=== PATIENT | female | born 1960 | race Caucasian/White ===

== ENCOUNTER → 2016-08-07 | Outpatient (CLI) | payer BC ==
--- NOTE | 2016-08-07 16:23 | REPMRS ---
Patient History The patient states she had a clinical breast exam in 07/2016. Patient is postmenopausal, has history of other cancer at age 50, and had first child at age 35. No known family history of cancer. Digital Woman Screen Mammo: August 07, 2016 - Exam #: [id number] Bilateral CC and MLO view(s) were taken. Technologist: Mary Anne Taylor, Technologist Prior study comparison: July 03, 2015, digital woman screen mammo performed at [facility] to [facility]. July 03, 2014, digital woman screen mammo performed at [facility]. March 09, 2013, digital woman screen mammo performed at [facility]. FINDINGS: There are scattered fibroglandular densities. There has been no change in the appearance of the mammogram from the prior studies. There is a mild amount of scattered fibroglandular density which is fairly symmetric. There is no interval development of dominant mass, architectural distortion, or clustered microcalcification suggestive of malignancy. ASSESSMENT: BI-RADS/ACR category 1 mammogram. Negative. Recommendation Routine screening mammogram in 1 year (for women over age 40). This mammogram was interpreted with the aid of an FDA-approved computer-aided dectection system. Electronically Signed By: Darnell Goodson MD 08/07/16 [id number]
== END ==
LOC: M WHC 15:19
PROVIDERS: ATTEND Nurse Practitioner Family
DX: Z12.31 Encounter for screening mammogram for malignant neoplasm of breast (principal); Z78.0 Asymptomatic menopausal state

== ENCOUNTER → 2016-08-08 | Outpatient (REF) | payer BC | LOC: M SFHCWAGY 08:13 | PROVIDERS: ATTEND Nurse Practitioner Family | DX: Z12.4 Encounter for screening for malignant neoplasm of cervix (principal); N88.8 Other specified noninflammatory disorders of cervix uteri ==

== ENCOUNTER → 2017-06-25 | Outpatient (REF) | payer BC ==
[2017-06-25 10:11] LABS: MEAN CORPUSCULAR HEMOGLOBIN 28.1 pg (27.0-33.0); MEAN CORPUSCULAR HGB CONC 31.8 g/dl (32.0-36.5); MEAN CORPUSCULAR VOLUME 88.5 fl (80.0-96.0); PLATELET COUNT, AUTOMATED 221 10^3/uL (150-450); RED CELL DISTRIBUTION WIDTH 16.2 % (11.5-14.5); WHITE BLOOD COUNT 2.8 10^3/uL (4.0-10.0)
[2017-06-25 10:20] LABS: ALBUMIN 4.2 GM/DL (3.2-5.2); ALBUMIN/GLOBULIN RATIO 1.24 (1.00-1.93); ALKALINE PHOSPHATASE 66 U/L (45-117); ALT/SGPT 22 U/L (12-78); ANION GAP 6 MEQ/L (8-16); AST/SGOT 21 U/L (7-37); BILIRUBIN,TOTAL 0.4 MG/DL (0.2-1.0); BLOOD UREA NITROGEN 17 MG/DL (7-18); CARBON DIOXIDE LEVEL 29 MEQ/L (21-32); CHLORIDE LEVEL 104 MEQ/L (98-107); CHOLESTEROL LEVEL 284 MG/DL (<200); CREATININE FOR GFR 0.87 MG/DL (0.55-1.02); GLOMERULAR FILTRATION RATE > 60.0 (>51); GLUCOSE, FASTING 90 MG/DL (70-105); POTASSIUM SERUM 4.4 MEQ/L (3.5-5.1); SODIUM LEVEL 139 MEQ/L (136-145); TOTAL PROTEIN 7.6 GM/DL (6.4-8.2); TRIGLYCERIDES LEVEL 54 MG/DL (<150)
== END ==
LOC: M LAB REF 09:59
PROVIDERS: ATTEND Internal Medicine
DX: Z00.00 Encounter for general adult medical examination without abnormal findings (principal); C02.9 Malignant neoplasm of tongue, unspecified; E78.00 Pure hypercholesterolemia, unspecified

== ENCOUNTER → 2017-11-24 | Outpatient (CLI) | payer BC | LOC: M WHC 15:19 | DX: Z12.31 Encounter for screening mammogram for malignant neoplasm of breast (principal); Z78.0 Asymptomatic menopausal state | CPT/HCPCS: 77067 ==

== ENCOUNTER → 2017-11-24 | Outpatient (REF) | payer BC | LOC: M SFHCWAGY 15:41 | DX: Z12.4 Encounter for screening for malignant neoplasm of cervix (principal) | CPT/HCPCS: G0123 ==

== ENCOUNTER → 2018-07-07 | Outpatient (REF) | payer BC ==
[2018-07-07 09:43] LABS: HEMATOCRIT 39.5 % (36.0-47.0); HEMOGLOBIN 12.4 g/dl (12.0-15.5); MEAN CORPUSCULAR HEMOGLOBIN 27.5 pg (27.0-33.0); MEAN CORPUSCULAR HGB CONC 31.4 g/dl (32.0-36.5); MEAN CORPUSCULAR VOLUME 87.6 fl (80.0-96.0); PLATELET COUNT, AUTOMATED 201 10^3/uL (150-450); RED BLOOD COUNT 4.51 10^6/uL (4.00-5.40); WHITE BLOOD COUNT 3.5 10^3/uL (4.0-10.0)
[2018-07-07 09:59] LABS: ALBUMIN 3.8 GM/DL (3.2-5.2); ALT/SGPT 22 U/L (12-78); BILIRUBIN,TOTAL 0.4 MG/DL (0.2-1.0); BLOOD UREA NITROGEN 13 MG/DL (7-18); CALCIUM LEVEL 9.1 MG/DL (8.5-10.1); CARBON DIOXIDE LEVEL 29 MEQ/L (21-32); CHLORIDE LEVEL 106 MEQ/L (98-107); CHOLESTEROL LEVEL 301 MG/DL (<200); CREATININE FOR GFR 0.88 MG/DL (0.55-1.30); GLOMERULAR FILTRATION RATE > 60.0 (>51); GLUCOSE, FASTING 92 MG/DL (70-100); HDL CHOLESTEROL 88 MG/DL (>40); LDL CHOLESTEROL 198 MG/DL (<100); NON-HDL-C 213 MG/DL; POTASSIUM SERUM 4.5 MEQ/L (3.5-5.1); SODIUM LEVEL 142 MEQ/L (136-145); TOTAL PROTEIN 7.1 GM/DL (6.4-8.2); TRIGLYCERIDES LEVEL 77 MG/DL (<150)
== END ==
LOC: M SFHCPLAZ 09:25
PROVIDERS: ATTEND Internal Medicine
DX: Z00.00 Encounter for general adult medical examination without abnormal findings (principal); E78.00 Pure hypercholesterolemia, unspecified

== ENCOUNTER 2018-08-29 13:41 | Emergency (ER) | payer BC ==
[~2018-08-29] VITALS: Ht 172.7 cm; Wt 63.6 kg
[2018-08-29] MEDS ORDERED: ATOR1TAB19 (13:47)
[2018-08-29 15:01] VITALS: BP 124/78
--- NOTE | 2018-08-29 15:15 | REP ---
LEFT KNEE, COMPLETE: 08/29/2018. CLINICAL HISTORY: Trauma. FINDINGS: Four views are provided. The patient was unable to position for the sunrise view. Medial and lateral compartments show no narrowing. I see no depressed fracture of the tibial plateau. The proximal fibula unremarkable. Femoral condyles unremarkable. There is a suprapatellar effusion, best seen on the lateral view. No osteochondral defect evident. IMPRESSION: 1. Suprapatellar effusion on the lateral view, no other significant or acute finding. No visible or displaced fracture, loose body, osteochondral defect, or other significant finding. Electronically Signed by Twin Bartlett MD 08/29/2018 07:20 P
== END 2018-08-29 15:08 | disposition home or self-care (01) ==
LOC: M ED 13:41
DX: M23.92 Unspecified internal derangement of left knee (principal); M25.462 Effusion, left knee; W00.9XXA Unspecified fall due to ice and snow, initial encounter; Y92.9 Unspecified place or not applicable; Y93.23 Activity, snow (alpine) (downhill) skiing, snowboarding, sledding, tobogganing and snow tubing; Y99.9 Unspecified external cause status; E78.00 Pure hypercholesterolemia, unspecified; Z79.899 Other long term (current) drug therapy

== ENCOUNTER → 2018-08-30 | Outpatient (CLI) | payer BC ==
[~2018-08-30] MED LIST: ATOR1TAB19
--- NOTE | 2018-08-31 08:12 | REP ---
MRI LEFT KNEE WITHOUT CONTRAST: 08/30/2018. Clinical history: Left knee sprain. Joint effusion on the x-ray yesterday. Technique: Axial T2 with coronal and sagittal PD and fat suppressed T2 sequences. Findings: Extensive marrow edema in the tibial plateau between the tibial spines and into the lateral tibial epiphysis and metaphysis. There is a nondisplaced/nondepressed fracture line evident on the PD images with dark signal. This fracture is radiographically occult. There is a joint effusion in all compartments and into the suprapatellar bursa and recesses. Fracture line extends into the medial tibial spine on the coronal images and posteriorly to the posterior margin of the tibial plateau. Medial plateau and both femoral condyles are unremarkable. There is no patellar fracture. Proximal fibula unremarkable. The proximal tibiofibular articulation is normal. PCL is intact. The ACL shows some contiguous fibers but significant increased signal along its course representing significant strain. There is some fluid posterior to the posterior horn of the medial meniscus and deep to the capsule representing meniscocapsular injury. I do not see a tear extending to an articular surface. There is no loose body or bucket-handle tear fragment in the medial compartment. There is mild chondromalacia in that compartment. The MCL is intact. There is some edema, attenuation of the medial patellar retinaculum consistent with strain. Trace fluid in the popliteal fossa adjacent to the medial head of the gastrocnemius. The lateral meniscus shows no definite tear or loose body in the lateral compartment. There is some chondromalacia. Lateral collateral ligamentous complex shows some increased signal along its fibers representing some strain. The lateral patellar retinaculum grossly intact. Popliteus tendon is preserved. Extensor mechanism shows patellar and quadriceps tendons intact. Suprapatellar effusion with suspected plica. Impression: 1. There is a nondisplaced, nondepressed central and lateral tibial plateau fracture with dark signal PD and extensive marrow edema adjacent to it on the T2 images. This is radiographically occult. There is an associated joint effusion through all the compartments. 2. Meniscocapsular injury with fluid posterior to posterior horn of the medial meniscus and deep to its capsule. 3. Chondromalacia all three compartments without loose body, osteochondral defect or significant joint space narrowing. 4. Strain of the collateral ligamentous complexes and the medial patellar retinaculum. No definite tear. Small amount of fluid in the popliteal fossa. 5. Strain of the ACL. There are some contiguous fibers noted. PCL intact. Electronically Signed by Twin Bartlett MD 08/31/2018 05:42 P
== END ==
LOC: M RAD 16:15
PROVIDERS: ATTEND Orthopaedic Surgery Sports Medicine
DX: S82.55XA Nondisplaced fracture of medial malleolus of left tibia, initial encounter for closed fracture (principal); M89.0 Algoneurodystrophy; M25.462 Effusion, left knee; M22.42 Chondromalacia patellae, left knee; S83.92XA Sprain of unspecified site of left knee, initial encounter; X58.XXXA Exposure to other specified factors, initial encounter; Y92.9 Unspecified place or not applicable

== ENCOUNTER → 2018-10-05 | Outpatient (REF) | payer BC ==
[2018-10-05 09:26] LABS: ALBUMIN 3.9 GM/DL (3.2-5.2); BILIRUBIN,DIRECT 0.1 MG/DL (0.0-0.2); BILIRUBIN,TOTAL 0.5 MG/DL (0.2-1.0); CHOLESTEROL RISK RATIO 2.425 (<5); TOTAL PROTEIN 7.4 GM/DL (6.4-8.2)
== END ==
LOC: M LAB REF 08:54
PROVIDERS: ATTEND Internal Medicine
DX: E78.00 Pure hypercholesterolemia, unspecified (principal)

== ENCOUNTER → 2018-11-25 | Outpatient (REF) | payer BC ==
[2018-11-27 15:51] LABS: HPV HYBRID CAPTURE II Negative (Negative)
== END ==
LOC: M SFHCWAGY 15:40
PROVIDERS: ATTEND Nurse Practitioner Family
DX: Z12.4 Encounter for screening for malignant neoplasm of cervix (principal); N88.8 Other specified noninflammatory disorders of cervix uteri
CPT/HCPCS: 87624; G0123

== ENCOUNTER → 2018-11-25 | Outpatient (CLI) | payer BC ==
--- NOTE | 2018-11-25 17:40 | REPMRS ---
Patient History The patient states she had a clinical breast exam in 11/2018. No known family history of cancer. Digital Woman Screen Mammo: November 25, 2018 - Exam #: [id number] Bilateral CC and MLO view(s) were taken. Technologist: Angelia Boyce Technologist Prior study comparison: November 24, 2017, digital woman screen mammo performed at [facility]. August 07, 2016, digital woman screen mammo performed at [facility]. July 03, 2015, digital woman screen mammo performed at [facility]. FINDINGS: There are scattered fibroglandular densities. There has been no change in the appearance of the mammogram from the prior studies. There is a mild amount of scattered fibroglandular density which is fairly symmetric. There is no interval development of dominant mass, architectural distortion, or clustered microcalcification suggestive of malignancy. 3-D tomosynthesis shows no additional findings. Assessment: BI-RADS/ACR category 1 mammogram. Negative Mammogram. Recommendation Routine screening mammogram of both breasts in 1 year (for women over age 40). This patient's Lifetime Breast Cancer RIsk is estimated at 11.4 %. This mammogram was interpreted with the aid of an FDA-approved computer-aided dectection system. Electronically Signed By: Darnell Goodson MD 11/25/18 [id number]
== END ==
LOC: M WHC 15:00
PROVIDERS: ATTEND Nurse Practitioner Family
DX: Z12.31 Encounter for screening mammogram for malignant neoplasm of breast (principal)

== ENCOUNTER → 2019-07-05 | Outpatient (REF) | payer BC ==
[2019-07-05 08:00] LABS: HEMATOCRIT 43.1 % (36.0-47.0); HEMOGLOBIN 13.4 g/dl (12.0-15.5); MEAN CORPUSCULAR HEMOGLOBIN 28.5 pg (27.0-33.0); MEAN CORPUSCULAR HGB CONC 31.1 g/dl (32.0-36.5); MEAN CORPUSCULAR VOLUME 91.5 fl (80.0-96.0); PLATELET COUNT, AUTOMATED 182 10^3/uL (150-450); RED BLOOD COUNT 4.71 10^6/uL (4.00-5.40); WHITE BLOOD COUNT 3.6 10^3/uL (4.0-10.0)
[2019-07-05 08:03] LABS: ALBUMIN 3.8 GM/DL (3.2-5.2); ALT/SGPT 22 U/L (12-78); BILIRUBIN,TOTAL 0.5 MG/DL (0.2-1.0); BLOOD UREA NITROGEN 18 MG/DL (7-18); CALCIUM LEVEL 9.3 MG/DL (8.5-10.1); CARBON DIOXIDE LEVEL 28 MEQ/L (21-32); CHLORIDE LEVEL 104 MEQ/L (98-107); CHOLESTEROL LEVEL 224 MG/DL (<200); CHOLESTEROL RISK RATIO 2.516 (<5); CREATININE FOR GFR 0.88 MG/DL (0.55-1.30); GLOMERULAR FILTRATION RATE > 60.0 (>51); GLUCOSE, FASTING 93 MG/DL (70-100); HDL CHOLESTEROL 89 MG/DL (>40); LDL CHOLESTEROL 122 MG/DL (<100); NON-HDL-C 135 MG/DL; POTASSIUM SERUM 4.6 MEQ/L (3.5-5.1); SODIUM LEVEL 140 MEQ/L (136-145); TOTAL PROTEIN 7.2 GM/DL (6.4-8.2); TRIGLYCERIDES LEVEL 65 MG/DL (<150)
== END ==
LOC: M LAB REF 07:45
PROVIDERS: ATTEND Internal Medicine
DX: Z00.00 Encounter for general adult medical examination without abnormal findings (principal); Z85.810 Personal history of malignant neoplasm of tongue; E78.00 Pure hypercholesterolemia, unspecified

== ENCOUNTER → 2020-01-12 | Outpatient (CLI) | payer BC ==
--- NOTE | 2020-01-12 16:12 | REPMRS ---
Patient History The patient states she had a clinical breast exam in January 2020.No known family history of cancer. Digital Woman Screen Mammo: January 12, 2020 - Exam #: [id number] Bilateral CC and MLO view(s) were taken. Technologist: Lorraine Antony, Technologist Prior study comparison: November 25, 2018, bilateral digital woman screen mammo performed at [facility]. November 24, 2017, digital woman screen mammo performed at [facility]. August 07, 2016, digital woman screen mammo performed at [facility]. FINDINGS: There are scattered fibroglandular densities. The Volpara volumetric breast density category is:B. There has been no change in the appearance of the mammogram from the prior studies. There is a mild amount of scattered fibroglandular density which is fairly symmetric. There is no interval development of dominant mass, architectural distortion, or grouped microcalcification suggestive of malignancy. 3-D tomosynthesis shows no additional findings. Assessment: BI-RADS/ACR category 1 mammogram. Negative Mammogram. Recommendation Routine screening mammogram of both breasts in 1 year (for women over age 40). This patient's Lifetime Breast Cancer Risk is estimated at 11.1 %. This mammogram was interpreted with the aid of an FDA-approved computer-aided dectection system. Electronically Signed By: Darnell Goodson MD 01/12/20 [id number]
== END ==
LOC: M WHC 15:09
PROVIDERS: ATTEND Nurse Practitioner Family
DX: Z12.31 Encounter for screening mammogram for malignant neoplasm of breast (principal)

== ENCOUNTER → 2020-07-17 | Outpatient (REF) | payer BC ==
[2020-07-17 07:38] LABS: HEMATOCRIT 41.4 % (36.0-47.0); HEMOGLOBIN 12.9 g/dl (12.0-15.5); MEAN CORPUSCULAR HEMOGLOBIN 28.4 pg (27.0-33.0); MEAN CORPUSCULAR HGB CONC 31.2 g/dl (32.0-36.5); MEAN CORPUSCULAR VOLUME 91.2 fl (80.0-96.0); PLATELET COUNT, AUTOMATED 202 10^3/uL (150-450); RED BLOOD COUNT 4.54 10^6/uL (4.00-5.40); WHITE BLOOD COUNT 3.3 10^3/uL (4.0-10.0)
[2020-07-17 08:18] LABS: ALBUMIN 3.9 GM/DL (3.2-5.2); ALT/SGPT 22 U/L (12-78); BILIRUBIN,TOTAL 0.7 MG/DL (0.2-1.0); BLOOD UREA NITROGEN 11 MG/DL (7-18); CALCIUM LEVEL 9.3 MG/DL (8.8-10.2); CARBON DIOXIDE LEVEL 28 MEQ/L (21-32); CHLORIDE LEVEL 106 MEQ/L (98-107); CHOLESTEROL LEVEL 226 MG/DL (<200); CHOLESTEROL RISK RATIO 2.597 (<5); CREATININE FOR GFR 0.84 MG/DL (0.55-1.30); GLOMERULAR FILTRATION RATE > 60.0 (>45); GLUCOSE, FASTING 96 MG/DL (70-100); HDL CHOLESTEROL 87 MG/DL (>40); LDL CHOLESTEROL 125 MG/DL (<100); NON-HDL-C 139 MG/DL; POTASSIUM SERUM 4.5 MEQ/L (3.5-5.1); SODIUM LEVEL 140 MEQ/L (136-145); TOTAL PROTEIN 7.1 GM/DL (6.4-8.2); TRIGLYCERIDES LEVEL 69 MG/DL (<150)
== END ==
LOC: M LAB REF 07:15
PROVIDERS: ATTEND Internal Medicine
DX: Z00.00 Encounter for general adult medical examination without abnormal findings (principal); E78.00 Pure hypercholesterolemia, unspecified

== ENCOUNTER → 2020-12-29 | Outpatient (CLI) | payer BC | LOC: M LABSMTC 10:26 | PROVIDERS: ATTEND Anesthesiology | DX: Z01.818 Encounter for other preprocedural examination (principal); Z11.52 Encounter for screening for COVID-19 ==

== ENCOUNTER 2021-01-03 08:10 | Day surgery (SDC) | payer BC ==
[~2021-01-03] VITALS: Ht 170.2 cm; Wt 62.1 kg
[~2021-01-03 08:10] MED LIST changes: +NS 1,000 ML IV ONE
[2021-01-03] MEDS ORDERED: LIDOCAINE 2% 100MG/5ML SDV (FOR ANES.) As Ordered ONE (09:08)
[2021-01-03] MEDS ORDERED: propofoL 200 MG/20 ML VIAL As Ordered ONE ×2 (09:08→09:27)
[2021-01-03] MEDS ORDERED: METOPROLOL 5 MG/5 ML VIAL As Ordered ONE (09:25)
--- NOTE | 2021-01-03 09:36 | ROOR ---
Patient Name: Olga Iraheta Procedure Date: 01/03/2021 9:13 AM Date of : 1960 Age: 60 Room: [facility], [facility] Gender: Female Note Status: Finalized Procedure: Colonoscopy Indications: Screening for colorectal malignant neoplasm Providers: Davie Daniels MD Referring MD: Neo Chou MD Requesting Provider: Medicines: Monitored Anesthesia Care Complications: No immediate complications. Procedure: Pre-Anesthesia Assessment: - The heart rate, respiratory rate, oxygen saturations, blood pressure, adequacy of pulmonary ventilation, and response to care were monitored throughout the procedure. The Colonoscope was introduced through the anus and advanced to the cecum, identified by appendiceal orifice and ileocecal valve. The colonoscopy was performed without difficulty. The patient tolerated the procedure well. The quality of the bowel preparation was good. Findings: The perianal and digital rectal examinations were normal. Two sessile polyps were found in the descending colon. The polyps were diminutive in size. These polyps were removed with a cold snare. Resection and retrieval were complete. The exam was otherwise without abnormality on direct and retroflexion views. Impression: - Two diminutive polyps in the descending colon, removed with a cold snare. Resected and retrieved. - The examination was otherwise normal on direct and retroflexion views. Recommendation: - Repeat colonoscopy in 5 years for surveillance. Procedure Code(s): --- Professional --- 37404, Colonoscopy, flexible; with removal of tumor(s), polyp(s), or other lesion(s) by snare technique Diagnosis Code(s): --- Professional --- K63.5, Polyp of colon Z12.11, Encounter for screening for malignant neoplasm of colon CPT copyright 2019 [employer]. All rights reserved. The codes documented in this report are preliminary and upon tumbler machine operator helper review may be revised to meet current compliance requirements. Davie Daniels MD Davie Daniels MD 01/03/2021 9:36:20 AM Electronically signed by Davie Daniels MD Number of Addenda: 0 Note Initiated On: 01/03/2021 9:13 AM Estimated Blood Loss: Estimated blood loss: none.
[2021-01-03 10:05] VITALS: BP 110/64
== END 2021-01-03 10:06 | disposition home or self-care (01) ==
LOC: M OPP 08:10
PROVIDERS: ATTEND Internal Medicine Gastroenterology
DX: Z12.11 Encounter for screening for malignant neoplasm of colon (principal); K63.5 Polyp of colon; Z79.899 Other long term (current) drug therapy

== ENCOUNTER → 2021-01-16 | Outpatient (CLI) | payer BC ==
[~2021-01-16] MED LIST changes: -NS 1,000 ML IV ONE
== END ==
LOC: M WHC 14:51
PROVIDERS: ATTEND Nurse Practitioner Women's Health
DX: Z12.31 Encounter for screening mammogram for malignant neoplasm of breast (principal)

== ENCOUNTER → 2021-01-16 | Outpatient (REF) | payer BC | LOC: M SFHCWAGY 17:24 | PROVIDERS: ATTEND Nurse Practitioner Women's Health | DX: Z12.4 Encounter for screening for malignant neoplasm of cervix (principal); Z01.419 Encounter for gynecological examination (general) (routine) without abnormal findings ==

== ENCOUNTER → 2021-07-18 | Outpatient (REF) | payer BC ==
[2021-07-18 10:28] LABS: BASO % 1.2 % (0.0-1.0); EOS # 0.1 10^3/uL (0.0-0.5); EOS % 4.3 % (0.0-3.0); HEMATOCRIT 41.7 % (36.0-47.0); HEMOGLOBIN 13.4 g/dl (12.0-15.5); LYMPH # 1.2 10^3/uL (1.5-5.0); LYMPH % 35.8 % (24.0-44.0); MEAN CORPUSCULAR HEMOGLOBIN 30.5 pg (27.0-33.0); MEAN CORPUSCULAR HGB CONC 32.1 g/dl (32.0-36.5); MONO # 0.4 10^3/uL (0.0-0.8); NEUTROPHILS # 1.5 10^3/uL (1.5-8.5); NEUTROPHILS % 46.4 % (36.0-66.0); PLATELET COUNT, AUTOMATED 256 10^3/uL (150-450); RED BLOOD COUNT 4.39 10^6/uL (4.00-5.40); WHITE BLOOD COUNT 3.2 10^3/uL (4.0-10.0)
[2021-07-18 10:36] LABS: ALBUMIN 4.1 GM/DL (3.2-5.2); ALT/SGPT 31 U/L (12-78); BILIRUBIN,TOTAL 0.6 MG/DL (0.2-1.0); BLOOD UREA NITROGEN 12 MG/DL (7-18); CALCIUM LEVEL 9.3 MG/DL (8.8-10.2); CARBON DIOXIDE LEVEL 31 MEQ/L (21-32); CHLORIDE LEVEL 105 MEQ/L (98-107); CHOLESTEROL LEVEL 227 MG/DL (<200); CHOLESTEROL RISK RATIO 2.467 (<5); CREATININE FOR GFR 0.84 MG/DL (0.55-1.30); GLOMERULAR FILTRATION RATE > 60.0 (>45); GLUCOSE, FASTING 97 MG/DL (70-100); HDL CHOLESTEROL 92 MG/DL (>40); LDL CHOLESTEROL 123 MG/DL (<100); NON-HDL-C 135 MG/DL; POTASSIUM SERUM 4.4 MEQ/L (3.5-5.1); SODIUM LEVEL 140 MEQ/L (136-145); TOTAL PROTEIN 7.3 GM/DL (6.4-8.2); TRIGLYCERIDES LEVEL 61 MG/DL (<150)
[2021-07-18 11:24] LABS: HEPATITIS C VIRUS ABY INDEX 0.1 INDEX (<0.8)
== END ==
LOC: M LAB REF 09:49
PROVIDERS: ATTEND Internal Medicine
DX: Z00.00 Encounter for general adult medical examination without abnormal findings (principal); E78.00 Pure hypercholesterolemia, unspecified; Z85.810 Personal history of malignant neoplasm of tongue; Z11.59 Encounter for screening for other viral diseases

== ENCOUNTER → 2022-04-17 | Outpatient (REF) | payer OTHER | LOC: M SFHCWAGY 17:37 | PROVIDERS: ATTEND Nurse Practitioner Family | DX: Z12.4 Encounter for screening for malignant neoplasm of cervix (principal) ==

== ENCOUNTER → 2022-04-17 | Outpatient (CLI) | payer OTHER | LOC: M WHC 14:14 | PROVIDERS: ATTEND Nurse Practitioner Family | DX: Z12.31 Encounter for screening mammogram for malignant neoplasm of breast (principal) ==

== ENCOUNTER → 2022-07-21 | Outpatient (CLI) | payer OTHER ==
[2022-07-21 07:24] LABS: HEMATOCRIT 42.9 % (36.0-47.0); HEMOGLOBIN 14.4 g/dl (12.0-15.5); MEAN CORPUSCULAR HEMOGLOBIN 31.9 pg (27.0-33.0); MEAN CORPUSCULAR HGB CONC 33.6 g/dl (32.0-36.5); MEAN CORPUSCULAR VOLUME 95.1 fl (80.0-96.0); PLATELET COUNT, AUTOMATED 212 10^3/uL (150-450); RED BLOOD COUNT 4.51 10^6/uL (4.00-5.40); WHITE BLOOD COUNT 3.5 10^3/uL (4.0-10.0)
[2022-07-21 07:50] LABS: ALKALINE PHOSPHATASE 67 U/L (46-116); ALT/SGPT 29 U/L (7.0-40); AST/SGOT 31 U/L (<34); BILIRUBIN,TOTAL 0.7 MG/DL (0.3-1.2); BLOOD UREA NITROGEN 17 MG/DL (9-23); CALCIUM LEVEL 9.9 MG/DL (8.3-10.6); CARBON DIOXIDE LEVEL 28 MMOL/L (20-31); CHLORIDE LEVEL 104 MMOL/L (98-107); CHOLESTEROL LEVEL 248 MG/DL (<200); CHOLESTEROL RISK RATIO 2.78 (<5); CREATININE FOR GFR 0.84 MG/DL (0.55-1.30); GLOMERULAR FILTRATION RATE > 60.0 (>45); GLUCOSE, FASTING 101 MG/DL (74-106); HDL CHOLESTEROL 89.1 MG/DL (>40); LDL CHOLESTEROL 144.1 MG/DL (<100); NON-HDL-C 159 MG/DL; POTASSIUM SERUM 4.4 MMOL/L (3.5-5.1); SODIUM LEVEL 140 MMOL/L (136-145); TOTAL PROTEIN 7.2 G/DL (5.7-8.2); TRIGLYCERIDES LEVEL 74 MG/DL (<150)
[2022-07-21 07:53] LABS: THYROID STIMULATING HORMONE 2.104 uIU/ML (0.55-4.78)
== END ==
LOC: M LAB 06:27
PROVIDERS: ATTEND Nurse Practitioner Adult Health
DX: Z00.00 Encounter for general adult medical examination without abnormal findings (principal); E78.00 Pure hypercholesterolemia, unspecified

== ENCOUNTER → 2023-04-20 | Outpatient (CLI) | payer OTHER | LOC: M WHC 09:39 | PROVIDERS: ATTEND Nurse Practitioner Adult Health | DX: Z12.31 Encounter for screening mammogram for malignant neoplasm of breast (principal) ==

== ENCOUNTER → 2023-07-24 | Outpatient (CLI) | payer OTHER ==
[2023-07-24 10:18] LABS: HEMATOCRIT 45.4 % (36.0-47.0); HEMOGLOBIN 14.9 g/dl (12.0-15.5); MEAN CORPUSCULAR HEMOGLOBIN 31.6 pg (27.0-33.0); MEAN CORPUSCULAR HGB CONC 32.8 g/dl (32.0-36.5); MEAN CORPUSCULAR VOLUME 96.2 fl (80.0-96.0); PLATELET COUNT, AUTOMATED 221 10^3/uL (150-450); RED BLOOD COUNT 4.72 10^6/uL (4.00-5.40); WHITE BLOOD COUNT 3.5 10^3/uL (4.0-10.0)
[2023-07-24 10:47] LABS: ALBUMIN 4.1 G/DL (3.2-5.2); ALKALINE PHOSPHATASE 61 U/L (46-116); ALT/SGPT 24 U/L (7.0-40); AST/SGOT 20 U/L (<34); BILIRUBIN,TOTAL 0.7 MG/DL (0.3-1.2); BLOOD UREA NITROGEN 14 MG/DL (9-23); CALCIUM LEVEL 9.7 MG/DL (8.3-10.6); CARBON DIOXIDE LEVEL 29 MMOL/L (20-31); CHLORIDE LEVEL 105 MMOL/L (98-107); CHOLESTEROL LEVEL 263 MG/DL (<200); CHOLESTEROL RISK RATIO 3.18 (<5); CREATININE FOR GFR 0.91 MG/DL (0.55-1.30); GLOMERULAR FILTRATION RATE > 60.0 (>45); GLUCOSE, FASTING 100 MG/DL (74-106); HDL CHOLESTEROL 82.7 MG/DL (>40); LDL CHOLESTEROL 164.5 MG/DL (<100); NON-HDL-C 180.3 MG/DL; POTASSIUM SERUM 4.5 MMOL/L (3.5-5.1); SODIUM LEVEL 139 MMOL/L (136-145); TOTAL PROTEIN 6.8 G/DL (5.7-8.2); TRIGLYCERIDES LEVEL 79 MG/DL (<150)
[2023-07-24 11:36] LABS: TOTAL 25(OH) VITAMIN D 48.2 NG/ML (20.0-100.0)
== END ==
LOC: M PLALAB 07:08
PROVIDERS: ATTEND Nurse Practitioner Adult Health
DX: Z00.00 Encounter for general adult medical examination without abnormal findings (principal); E78.00 Pure hypercholesterolemia, unspecified; Z13.21 Encounter for screening for nutritional disorder

== ENCOUNTER → 2023-11-16 | Outpatient (CLI) | payer OTHER ==
[2023-11-16 13:14] LABS: CHOLESTEROL RISK RATIO 2.61 (<5); LDL CHOLESTEROL 104.4 MG/DL (<100)
== END ==
LOC: M PLALAB 07:05
PROVIDERS: ATTEND Nurse Practitioner Adult Health
DX: E78.00 Pure hypercholesterolemia, unspecified (principal)

== ENCOUNTER → 2024-04-22 | Outpatient (CLI) | payer OTHER | LOC: M WHC 08:22 | PROVIDERS: ATTEND Nurse Practitioner Adult Health | DX: Z12.31 Encounter for screening mammogram for malignant neoplasm of breast (principal) ==

== ENCOUNTER → 2024-08-15 | Outpatient (CLI) | payer OTHER ==
[2024-08-15 12:32] LABS: BASO % 0.8 % (0.0-1.0); EOS # 0.1 10^3/uL (0.0-0.5); EOS % 3.3 % (0.0-3.0); HEMATOCRIT 43.7 % (36.0-47.0); HEMOGLOBIN 14.1 g/dl (12.0-15.5); LYMPH # 1.2 10^3/uL (1.5-5.0); LYMPH % 30.4 % (24.0-44.0); MEAN CORPUSCULAR HEMOGLOBIN 31.1 pg (27.0-33.0); MEAN CORPUSCULAR HGB CONC 32.3 g/dl (32.0-36.5); MEAN CORPUSCULAR VOLUME 96.3 fl (80.0-96.0); MONO # 0.4 10^3/uL (0.0-0.8); MONO % 9.9 % (2.0-8.0); NEUTROPHILS # 2.2 10^3/uL (1.5-8.5); NEUTROPHILS % 55.3 % (36.0-66.0); PLATELET COUNT, AUTOMATED 219 10^3/uL (150-450); RED BLOOD COUNT 4.54 10^6/uL (4.00-5.40)
[2024-08-15 13:03] LABS: ALBUMIN 3.9 G/DL (3.2-5.2); ALKALINE PHOSPHATASE 63 U/L (35-104); ALT/SGPT 20 U/L (7.0-40); AST/SGOT 19 U/L (<34); BILIRUBIN,TOTAL 0.7 MG/DL (0.3-1.2); BLOOD UREA NITROGEN 16 MG/DL (9-23); CALCIUM LEVEL 9.5 MG/DL (8.3-10.6); CARBON DIOXIDE LEVEL 29 MMOL/L (20-31); CHLORIDE LEVEL 102 MMOL/L (98-107); CHOLESTEROL LEVEL 196 MG/DL (<200); CHOLESTEROL RISK RATIO 2.66 (<5); CREATININE FOR GFR 0.84 MG/DL (0.55-1.30); FERRITIN 42.2 NG/ML (7.3-270.7); GLOMERULAR FILTRATION RATE > 60.0 (>45); GLUCOSE, FASTING 94 MG/DL (74-106); HDL CHOLESTEROL 73.5 MG/DL (>40); IRON (FE) 135 UG/DL (50-170); LDL CHOLESTEROL 105.3 MG/DL (<100); NON-HDL-C 122.5 MG/DL; POTASSIUM SERUM 4.5 MMOL/L (3.5-5.1); SODIUM LEVEL 141 MMOL/L (136-145); THYROID STIMULATING HORMONE 1.968 uIU/ML (0.55-4.78); TOTAL 25(OH) VITAMIN D 35.1 NG/ML (20.0-100.0); TOTAL PROTEIN 6.8 G/DL (5.7-8.2); TRIGLYCERIDES LEVEL 86 MG/DL (<150)
[2024-08-15 13:04] LABS: FREE T4 1.22 NG/DL (0.89-1.76)
== END ==
LOC: M PLALAB 07:15
PROVIDERS: ATTEND Nurse Practitioner Adult Health
DX: Z00.00 Encounter for general adult medical examination without abnormal findings (principal); E78.00 Pure hypercholesterolemia, unspecified; Z13.21 Encounter for screening for nutritional disorder; D72.819 Decreased white blood cell count, unspecified

== ENCOUNTER → 2025-04-24 | Outpatient (CLI) | payer MEDICARE, OTHER | LOC: M WHC 07:53 | PROVIDERS: ATTEND Nurse Practitioner Adult Health | DX: Z12.31 Encounter for screening mammogram for malignant neoplasm of breast (principal) ==